=== PATIENT | female | born 1960 | race Caucasian/White ===

== ENCOUNTER 2020-03-01 12:12 | Outpatient (CLI) | payer BC, MEDICARE ==
[2020-03-01 12:22] LABS: BASOPHILS # (AUTO) 0.1 10^3/uL (0.0-0.1); BASOPHILS % (AUTO) 0.9 %; EOSINOPHILS # (AUTO) 0.4 10^3/uL (0.0-0.7); EOSINOPHILS % (AUTO) 7.3 %; HGB - HEMOGLOBIN 14.9 g/dL (12.0-16.0); LYMPHOCYTES # (AUTO) 1.5 10^3/uL (1.5-3.5); LYMPHOCYTES % (AUTO) 25.2 %; MEAN CORPUSCULAR HEMOGLOBIN 31.2 pg (27.0-31.0); MEAN CORPUSCULAR HGB CONC 35.1 g/dL (32.0-36.0); MEAN CORPUSCULAR VOLUME 89.1 fL (81.0-99.0); MEAN PLATELET VOLUME 8.6 fL (7.9-10.8); MONOCYTES # (AUTO) 0.5 10^3/uL (0.0-1.0); MONOCYTES % (AUTO) 7.8 %; NEUTROPHILS # (AUTO) 3.4 10^3/uL (1.5-6.6); NEUTROPHILS % (AUTO) 57.4 %; PLT - PLATELET COUNT 249 10^3/uL (130-450); RED BLOOD COUNT 4.77 10^6/uL (4.20-5.40); RED CELL DISTRIBUTION WIDTH 12.7 % (12.0-15.0); WHITE BLOOD COUNT 5.9 x10^3/uL (4.8-10.8)
== END 2020-03-01 12:13 | disposition home or self-care (01) ==
LOC: LAB 12:12
PROVIDERS: ATTEND Dentist Oral and Maxillofacial Surgery
DX: Z01.812 Encounter for preprocedural laboratory examination (principal); R68.84 Jaw pain; R25.2 Cramp and spasm; Z20.828 Contact with and (suspected) exposure to other viral communicable diseases
CPT/HCPCS: 36415; 85025

== ENCOUNTER 2020-03-05 08:41 | Day surgery (SDC) | payer BC, MEDICARE ==
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
[~2020-03-05 08:41] MED LIST: BACITRACIN 50,000 UNIT VIAL ONE; BACITRACIN ZINC OINT 1 PACKET TOP ONE; CHLORHEXIDINE GLUCONATE 15 ML UDC PO ONE; EPINEPHrine 1 MG/ML AMP ONE; MINERAL OIL/PETROLAT OPHTH OINT ONE; OXYMETAZOLINE HCL 100 SPRAYS BOTTLE NAS ONE; SCOPOLAMINE PATCH TOP SCH; SODIUM CHLORIDE 0.9% 10 ML ONE; ceFAZolin 2 GM/50 ML 2 GM/50 ML BAG IV ONE
[2020-03-05] MEDS ORDERED: LACTATED RINGERS 1,000 ML IV ONE ×2 (08:57→13:49)
--- NOTE | 2020-03-05 09:34 | ANESTHESIA ---
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 - Procedure Bilateral diskectomy of the TMJs Vital Signs: Temp Pulse Resp BP Pulse Ox 36.9 C 83 18 147/109 H 96 03/05/20 08:58 03/05/20 08:58 03/05/20 08:58 03/05/20 08:58 03/05/20 08:58 Height: 5 ft 7 in Weight (kg): 70.9 kg Body Mass Index: 24.5 BMI Classification: Healthy weight - NPO >8 hours - Is Patient ?: No Home Medications and Allergies Home Medications: Ambulatory Orders Carvedilol [Coreg] 6.25 mg PO BID 03/01/20 Lidocaine Patch 5% [Lidoderm Patch] 1 each TOP BID PRN 03/01/20 Losartan [Cozaar] 50 mg PO BID 03/01/20 Mirtazapine [Remeron] 15 mg PO DAILY 03/01/20 Active Medications Scopolamine HBr (Scopolamine Patch) 1 patch TOP Q3D ELISA Last Admin: 03/05/20 09:16 Dose: 1 patch Documented by: hydroCHLOROthiazide [Hydrochlorothiazide] 12.5 mg PO DAILY 03/01/15 Carvedilol [Coreg] 6.25 mg PO BID 03/01/20 Lidocaine Patch 5% [Lidoderm Patch] 1 each TOP BID PRN 03/01/20 Losartan [Cozaar] 50 mg PO BID 03/01/20 Mirtazapine [Remeron] 15 mg PO DAILY 03/01/20 Allergies/Adverse Reactions: Allergies Allergy/AdvReac Type Severity Reaction Status Date / Time No Known Drug Allergies Allergy Verified 03/01/15 14:35 Anes History & Medical History - Anesthetic History Anesthesia Complications: reports: Post-Operative Nausea/Vomiting - Medical History Cardiovascular: reports: Hypertension Pulmonary: reports: Pneumonia (2009) Gastrointestinal: reports: None Urinary: reports: None Neuro: reports: Peripheral neuropathy (Bilateral) Musculoskeletal: reports: Chronic back pain Endocrine/Autoimmune: reports: None Blood Disorders: reports: None Skin: reports: None Smoking Status: Never smoker Psychosocial: reports: Depression, Anxiety, Alcohol (glass of wine, few times per week), Other (PTSD) - Surgical History Gynecologic: Hysterectomy Orthopedic: Spine surgery (Neck fusion) Exam General: Alert, Oriented x3, Cooperative, No acute distress Dental: WNL Mouth Openin Fingerbreadth Neck Mobility: Reduced Mallampati classification: II Thyromental Distance: 4-6 cm Mental/Cognitive Status: Alert/Oriented X3, Normal for patient Plan Anesthesia Type: General Consent for Procedure(s) Verified and Reviewed: Yes Code Status: Attempt Resuscitation ASA classification: 2-Mild systemic disease Is this case an emergency?: No
[2020-03-05] MEDS ORDERED: fentaNYL 100 MCG/2 ML VIAL IVP PRN (09:42)
[2020-03-05] MEDS ORDERED: ATROPINE ABBOJECT 1 MG/10 ML SYRINGE IVP PRN (09:42)
[2020-03-05] MEDS ORDERED: NALOXONE 0.4 MG/ML VIAL IVP PRN (09:42)
[2020-03-05] MEDS ORDERED: ONDANSETRON 4 MG/2 ML VIAL IVP PRN (09:42)
[2020-03-05] MEDS ORDERED: MORPHINE 2 MG/ML CARPUJECT IVP PRN (09:42)
[2020-03-05] MEDS ORDERED: MAGNESIUM SULFATE 1 GM/2 ML VIAL ONE (09:44)
[2020-03-05] MEDS ORDERED: ROCURONIUM 50 MG/5 ML VIAL ONE ×2 (09:45→13:12)
[2020-03-05] MEDS ORDERED: DEXAMETHASONE 4 MG/ML VIAL ONE (09:45)
[2020-03-05] MEDS ORDERED: ONDANSETRON 4 MG/2 ML VIAL ONE (09:45)
[2020-03-05] MEDS ORDERED: LIDOCAINE-PF 2% 10 ML AMP SUBQ ONE (09:45)
[2020-03-05] MEDS ORDERED: KETAMINE 500 MG/10 ML VIAL ONE (09:46)
[2020-03-05] MEDS ORDERED: PROPOFOL 200 MG/20 ML VIAL IVP ONE (09:47)
[2020-03-05] MEDS ORDERED: SUCCINYLCHOLINE 200 MG/10 ML VIAL ONE ×2 (09:47→10:09)
[2020-03-05] MEDS ORDERED: OXYMETAZOLINE HCL 100 SPRAYS BOTTLE NAS ONE (10:00)
[2020-03-05] MEDS ORDERED: LACTATED RINGERS 1,000 ML IV SCH (10:00)
[2020-03-05] MEDS ORDERED: fentaNYL 100 MCG/2 ML VIAL ONE (10:46)
[2020-03-05] MEDS ORDERED: EPINEPHrine 1 MG/ML AMP IR ONE (10:56)
[2020-03-05] MEDS ORDERED: EPINEPHrine 1 MG/ML AMP SUBQ ONE (10:56)
[2020-03-05] MEDS ORDERED: ePHEDrine 50 MG/ML VIAL IVP ONE (11:01)
[2020-03-05] MEDS ORDERED: HYDROmorphone 1 MG/ML CARPUJECT ONE ×2 (12:39→14:41)
[2020-03-05] MEDS ORDERED: BACITRACIN ZINC OINT 14 GM TOP ONE (13:35)
[2020-03-05] MEDS ORDERED: GLYCOPYRROLATE 1 MG/5 ML VIAL ONE (13:39)
[2020-03-05] MEDS ORDERED: NEOSTIGMINE 1 MG/1 ML 10 ML MDV ONE (13:39)
[2020-03-05] MEDS ORDERED: ACETAMINOPHEN 1,000 MG/100 ML 100 ML IV ONE (14:26)
[2020-03-05] MEDS: HYDROmorphone 0.5 MG/0.5 ML SYRINGE IVP PRN ×3 (14:35→14:57)
--- NOTE | 2020-03-05 15:11 | ANESTHESIA POST OP EVALUATION ---
Anesthesia Post Eval - Post Anesthesia Eval Vitals: Last Vital Signs Temp 37.3 C 03/05/20 14:45 Pulse 82 03/05/20 14:45 Resp 10 L 03/05/20 14:45 BP 98/66 03/05/20 14:45 Pulse Ox 96 03/05/20 14:45 CV Function Including HR & BP: positive: Stable Pain Control: positive: Satisfactory Nausea & Vomiting: positive: Negative Mental Status: positive: Baseline Respiratory Status: Airway Patent Hydration Status: Satisfactory Anesthesia Complications: positive: None
[2020-03-05 15:46] VITALS: BP 106/78
[2020-03-05] MEDS ORDERED: ONDANSETRON ODT 4 MG TABLET ONE (15:47)
== END 2020-03-05 08:42 | disposition home or self-care (01) ==
LOC: SDS 08:41
PROVIDERS: ATTEND Dentist Oral and Maxillofacial Surgery
PROC: 0RQ Upper Joints, Repair (ICD-10-PCS; 2020-03-05)
PROC: 0RQ Upper Joints, Repair (ICD-10-PCS; principal; 2020-03-05 09:30)
DX: M26.603 Bilateral temporomandibular joint disorder, unspecified (principal); I10 Essential (primary) hypertension; E78.00 Pure hypercholesterolemia, unspecified; Z98.1 Arthrodesis status; Z79.899 Other long term (current) drug therapy; Z87.01 Personal history of pneumonia (recurrent)